=== PATIENT | female | born 2000 | race Caucasian/White ===

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

== ENCOUNTER → 2022-01-24 17:41 | Outpatient (CLI) | payer OTHER, MEDICAID, SELFPAY ==
[2022-01-24 18:13] LABS: Add Manual Diff / Slide Review NO; Basophils Absolute Auto 100 /uL (0-100); Basophils Percent Auto 0.8 % (0-2); Eosinophils Absolute Auto 200 /uL (0-450); Eosinophils Percent Auto 2.5 % (2-4); Hematocrit 41.2 % (36-46); Hemoglobin 13.9 g/dL (12.0-16.0); Lymphocytes Absolute Auto 2500 /uL (1100-4500); Mean Corpuscular HGB Conc 33.6 % (30-36); Mean Corpuscular Hemoglobin 31.1 PG (26-34); Mean Corpuscular Volume 92.6 fL (80-100); Monocytes Absolute Auto 700 /uL (0-900); Neutrophils Absolute Auto 6400 /uL (1500-7000); Neutrophils Percent Auto 64.7 % (50-75); Platelet Count 299 X10^3/uL (150-400); Red Blood Cell Count 4.45 X10^6/uL (4.0-5.2); Red Cell Distribution Width 13.6 % (11.6-14.8); White Blood Cell Count 9.9 X10^3/uL (4.5-11.0)
[2022-01-24 18:24] LABS: Alanine Aminotransferase 15 IU/L (<35); Albumin 4.9 g/dL (3.5-5.0); Albumin Globulin Ratio 1.5 (1.0-2.8); Alkaline Phosphatase 82 U/L (38-126); Aspartate Aminotransferase 21 IU/L (14-36); BUN Creatinine Ratio 15.1 (6-22); Bilirubin Total 0.2 mg/dL (0.2-1.3); Blood Urea Nitrogen 13 mg/dL (7-17); Calcium 9.3 mg/dL (8.4-10.2); Carbon Dioxide 19 mmol/L (22-32); Chloride 109 mmol/L (98-107); Estimated Glomerular Filt Rate > 60 mL/min (>60); Globulin 3.2 g/dL (1.7-4.1); Glucose 109 mg/dL (70-100); HEMOLYSIS < 15 (0-50); Potassium 3.6 mmol/L (3.4-5.1); Sodium 144 mmol/L (137-145); Total Protein 8.1 g/dL (6.3-8.2)
[2022-01-29 10:29] LABS: Lamotrigine Lamictal 7.7 ug/mL (2.0-20.0)
[2022-01-29 10:35] LABS: Ethosuximide (Zarontin), Serum 65 ug/mL (40-100)
== END ==
PROVIDERS: Family Provider Family Medicine; PCP Family Medicine; Referring Provider Pediatrics; Visit Provider Pediatrics
DX: G40.A19 Absence epileptic syndrome, intractable, without status epilepticus (principal)
CPT/HCPCS: 36415; 80053; 80168; 80175; 85025

== ENCOUNTER 2022-12-19 17:48 | Emergency (ER) | payer OTHER, SELFPAY ==
[2022-12-19] VITALS (7 sets, daily range): BP systolic 95–110; BP diastolic 51–61; PULSE 111–145; RESP 16–28; TEMP 37.1; O2SAT 94–100; BMI 25.8
[2022-12-19 18:08] LABS: Add Manual Diff / Slide Review NO; Basophils Absolute Auto 200 /uL (0-100); Basophils Percent Auto 1.1 % (0-2); Eosinophils Absolute Auto 100 /uL (0-450); Eosinophils Percent Auto 0.5 % (2-4); Hematocrit 40.9 % (36-46); Hemoglobin 13.7 g/dL (12.0-16.0); Lymphocytes Absolute Auto 3100 /uL (1100-4500); Lymphocytes Percent Auto 22.6 % (25-40); Mean Corpuscular HGB Conc 33.5 % (30-36); Mean Corpuscular Hemoglobin 31.1 PG (26-34); Mean Corpuscular Volume 92.7 fL (80-100); Monocytes Absolute Auto 800 /uL (0-900); Monocytes Percent Auto 5.7 % (3-14); Neutrophils Absolute Auto 9500 /uL (1500-7000); Neutrophils Percent Auto 70.1 % (50-75); Platelet Count 306 X10^3/uL (150-400); Red Blood Cell Count 4.41 X10^6/uL (4.0-5.2); Red Cell Distribution Width 13.3 % (11.6-14.8); White Blood Cell Count 13.5 X10^3/uL (4.5-11.0)
[2022-12-19 18:14] LABS: Albumin 4.7 g/dL (3.5-5.0); Albumin Globulin Ratio 1.7 (1.0-2.8); Alkaline Phosphatase 76 U/L (38-126); Aspartate Aminotransferase 27 IU/L (14-36); BUN Creatinine Ratio 8.8 (6-22); Bilirubin Total 0.3 mg/dL (0.2-1.3); Blood Urea Nitrogen 6 mg/dL (7-17); Carbon Dioxide 12 mmol/L (22-32); Chloride 112 mmol/L (98-107); Estimated Glomerular Filt Rate > 60 mL/min (>60); Globulin 2.8 g/dL (1.7-4.1); Glucose 126 mg/dL (70-100); HEMOLYSIS < 15 (0-50); Potassium 3.7 mmol/L (3.4-5.1); Sodium 141 mmol/L (137-145); Total Protein 7.5 g/dL (6.3-8.2)
--- NOTE | 2022-12-19 18:17 | ED.SEIZURE ---
HPI - Seizure General Chief Complaint: Seizure Stated Complaint: Seizures Time Seen by Provider: 12/19/22 17:56 Source: patient Mode of arrival: Ambulatory Limitations: no limitations History of Present Illness HPI Narrative: 22-year-old female history of seizures and epilepsy has small absent seizures and tonic-clonic like seizures. Mom reports that she is followed by Neurology at [facility]. She was noted to have a few small seizures today they typically come around menstrual cycle. She did touch base with Neurology who instructed her acute increase acetazolamide starting tomorrow. However a couple hours later she had a tonic-clonic seizure lasting a couple of minutes she did bite her tongue no urinary incontinence. At this time mother called EMS she did receive some lorazepam earlier in the day. At this time patient is awake alert oriented not having any complaints but noted to be quite tachycardic. Medications include ethosuximide, lamotrigine, fluoxetine and acetazolamide. Patient denies any alcohol use she denies feeling ill mom reports that she does not typically have tonic-clonic seizures Related Data Home Medications Medication Instructions Recorded Confirmed ethosuximide 250 mg capsule 500 mg PO BID ##0 09/03/12 09/11/22 folic acid 1 mg tablet 1 mg PO QDAY ##30 05/08/16 09/11/22 cholecalciferol (vitamin D3) 50 2,000 unit PO DAILY 08/31/18 09/11/22 mcg (2,000 unit) capsule (Vitamin D3) acetazolamide 250 mg tablet See Rx Instructions PO .COMPLEX 01/22/22 09/11/22 Previous Rx's Medication Instructions Recorded lamotrigine 250 mg tablet,extended 750 mg PO DAILY #3 tabs 07/19/18 release 24 hr lorazepam 0.5 mg tablet See Rx Instructions PO DAILY PRN 04/05/22 seizure activity #8 tabs fluoxetine 20 mg capsule 60 mg PO DAILY #90 caps 12/19/22 Allergies Allergy/AdvReac Type Severity Reaction Status Date / Time No Known Drug Allergies Allergy Verified 09/11/22 09:14 Review of Systems Review of Systems ROS Unobtainable: All systems reviewed & are unremarkable except as noted in HPI and below Patient History Medical History (Updated 12/19/22 @ 20:41 by Lakeisha Love DO) Seizures Social History (Reviewed 12/19/22 @ 18:40 by MAME Cohn Smoking Status: Never smoker second hand exposure: No alcohol intake: never substance use type: does not use Smoking Status: Never smoker alcohol intake frequency: other Substance Use Type: does not use Exam Initial Vital Signs Initial Vital Signs: Vital Signs Temperature 98.8 F 12/19/22 17:48 Pulse Rate 142 H 12/19/22 17:48 Respiratory Rate 16 12/19/22 17:48 Blood Pressure 110/55 L 12/19/22 17:48 Pulse Oximetry 95 12/19/22 17:48 Oxygen Delivery Method Room Air 12/19/22 17:48 GENERAL: Alert well-appearing 22-year-old female HEENT: Head atraumatic,EOMI, pupils reactive, face symmetric, she did better tongue on the left side CARDIOVASCULAR: Regular rate and rhythm without murmurs, rubs or gallops. RESPIRATORY: Breath sounds equal bilaterally, no wheezes rales or rhonchi. ABDOMEN: Soft, nontender. Normoactive bowel sounds all 4 quadrants. No guarding or rebound. EXTREMITIES: Normal range of motion, no clubbing or edema. Neurovascularly intact NEUROLOGICAL: Alert and oriented x4.Normal gait and speech. Cranial nerves II through XII grossly intact. SKIN: Warm, dry, no laceration, no petechiae, no rashes or lesions. Course Orders Ordered: ED Orders 12/19/22 17:45 CBC Auto Diff [Complete Blood Count AUTO DIFF] Stat CMP [Comprehensive Metabolic Panel] Stat Lamotrigine Lamictal Stat Prolactin Stat 12/19/22 18:11 EKG-12 Lead Stat 12/19/22 18:48 Urine Drug Screen, Rapid Stat Discontinued Medications Sodium Chloride (Normal Saline 0.9%) 1,000 mls @ 1,000 mls/hr IV BOLUS ONE Stop: 12/19/22 19:16 Last Infusion: 12/19/22 19:57 Dose: 0 mls/hr Documented By: Admin: 12/19/22 18:24 Dose: 1,000 mls/hr Documented By: ABBY Sodium Chloride (Normal Saline 0.9%) 1,000 mls @ 1,000 mls/hr IV BOLUS ONE Stop: 12/19/22 19:55 Last Infusion: 12/19/22 21:08 Dose: 0 mls/hr Documented By: Admin: 12/19/22 19:57 Dose: 1,000 mls/hr Documented By: ABBY Ketorolac Tromethamine (Ketorolac 30 Mg/Ml Vial) 15 mg IV NOW ONE Stop: 12/19/22 18:38 Last Admin: 12/19/22 18:45 Dose: 15 mg Documented By: ABBY Vital Signs Vital signs: Vital Signs - 8 hr 12/19/22 17:48 12/19/22 17:52 12/19/22 18:00 Temperature 98.8 F Pulse Rate 142 H 145 H Respiratory Rate 16 Blood Pressure 110/55 L 101/53 L Pulse Oximetry 95 95 Oxygen Delivery Method Room Air 12/19/22 18:00 12/19/22 18:30 12/19/22 18:30 Temperature Pulse Rate 138 H 127 H Respiratory Rate 18 22 Blood Pressure 95/51 L Pulse Oximetry 94 97 Oxygen Delivery Method 12/19/22 19:00 12/19/22 19:00 12/19/22 19:30 Temperature Pulse Rate 117 H Respiratory Rate 28 H Blood Pressure 98/56 L 104/56 L Pulse Oximetry 97 Oxygen Delivery Method 12/19/22 19:30 12/19/22 20:00 12/19/22 20:00 Temperature Pulse Rate 122 H 111 H Respiratory Rate 27 H 23 Blood Pressure 100/61 Pulse Oximetry 99 100 Oxygen Delivery Method MDM - Seizure Lab Data 12/19/22 17:45 12/19/22 17:45 Labs: Lab Results 12/19/22 12/19/22 12/19/22 Range/Units 17:45 17:45 18:48 WBC 13.5 H (4.5-11.0) X10^3/uL RBC 4.41 (4.0-5.2) X10^6/uL Hgb 13.7 (12.0-16.0) g/dL Hct 40.9 (36-46) % MCV 92.7 (80-100) fL MCH 31.1 (26-34) PG MCHC 33.5 (30-36) % RDW 13.3 (11.6-14.8) % Plt Count 306 (150-400) X10^3/uL Neut % (Auto) 70.1 (50-75) % Lymph % (Auto) 22.6 L (25-40) % [place] % (Auto) 5.7 (3-14) % Eos % (Auto) 0.5 L (2-4) % Baso % (Auto) 1.1 (0-2) % Neut # (Auto) 9500 H (6482-0277) /uL Lymph # (Auto) 3100 (6685-3111) /uL [place] # (Auto) 800 (0-900) /uL Eos # (Auto) 100 (0-450) /uL Baso # (Auto) 200 H (0-100) /uL Sodium 141 (137-145) mmol/L Potassium 3.7 (3.4-5.1) mmol/L Chloride 112 H (98-107) mmol/L Carbon Dioxide 12 L (22-32) mmol/L BUN 6 L (7-17) mg/dL Creatinine 0.68 (0.52-1.04) mg/dL Estimated GFR > 60 (>60) mL/min BUN/Creatinine Ratio 8.8 (6-22) Glucose 126 H (70-100) mg/dL Calcium 9.0 (8.4-10.2) mg/dL Total Bilirubin 0.3 (0.2-1.3) mg/dL AST 27 (14-36) IU/L ALT 28 (<35) IU/L Alkaline Phosphatase 76 (38-126) U/L Total Protein 7.5 (6.3-8.2) g/dL Albumin 4.7 (3.5-5.0) g/dL Globulin 2.8 (1.7-4.1) g/dL Albumin/Globulin Ratio 1.7 (1.0-2.8) Prolactin 148.6 H (3.0-18.6) ng/mL U Opiates 300ng/mL cut Negative (Negative) Ur Oxycodone Screen Negative (Negative) Urine Methadone Screen Negative (Negative) Ur Barbiturates Screen Negative (Negative) U Tricyclic Antidepress Negative (Negative) Ur Phencyclidine Scrn Negative (Negative) Ur Amphetamines Screen Negative (Negative) U Methamphetamines Scrn Negative (Negative) Ur MDMA Scrn (Ecstasy) Negative (Negative) U Benzodiazepines Scrn Positive H (Negative) Urine Cocaine Screen Negative (Negative) U Marijuana (THC) Screen Negative (Negative) Point of Care Testing Test Results Negative Urine Dip Bedside Urine Glucose Negative Bedside Urine Bilirubin - Negative Bedside Urine Ketone - Negative Urine Specific [place] 1.030 Bedside Urine Occult Blood - Negative Bedside Urine pH 6.0 Bedside Urine Protein +/- 15 Bedside Urine Urobilinogen - Negative Bedside Urine Nitrite - Negative Bedside Urine Leukocytes - Negative Esterase ECG Data Interpretation: Sinus tachycardia rate 135 [place] interval 120 QRS [address] changes no T-wave inversions MDM Narrative Medical decision making narrative: Patient 22-year-old female history of epilepsy and seizure disorder presenting today after multiple seizures in tonic-clonic seizure. Reports that she gets seizures around her menstrual cycle but has not had a tonic-clonic in a time. She also reports multiple seizures today which is atypical for her. Blood work so has been reviewed and supports seizure activity with bicarb of 12 and an elevated prolactin 148. She is had no seizure activity here in the ED. No need for imaging of the head she has a known seizure disorder. She is no evidence of infection or other cause for increased seizure activity. on-call neurology agrees with increasing acetazolamide to 500 twice daily and to make sure she is an extra 250 mg tonight. Patient's vitals have improved she initially was quite tachycardic however it improved with IV fluids. Discussed plan with mom and patient agree to follow-up with Neurology and agree with medication adjustment. Discharge Plan Departure Patient Disposition: Home Clinical Impression: Seizure Instructions: DI for Seizure Disorder -- Adult Activity Restrictions/Additional Instructions: No driving *You have been diagnosed with seizure disorder *What to do: At this time please follow-up with your neurologist, call them tomorrow *Continue to take medications as directed Acetazolamide 500 mg twice a day, please take an extra 250 mg tonight *Follow up with your primary care provider in 2-3 days or call [phone] *Return to ER if you should have persistent frequent seizure [or] any new, worsening or concerning symptoms Prescriptions: No Action fluoxetine 20 mg capsule 60 mg PO DAILY Qty: 90 3RF Rx Instructions: Take 3 capsules once daily acetazolamide 250 mg tablet See Rx Instructions PO .COMPLEX Rx Instructions: 1 tab PO QAM, 2 tabs PO QHS orally; ethosuximide 250 MG capsule 500 mg PO BID Qty: 0 folic acid 1 MG tablet 1 mg PO QDAY Qty: 30 lorazepam 0.5 mg tablet See Rx Instructions PO DAILY PRN (Reason: seizure activity) Qty: 8 0RF Dose Instruction: give two tabs by mouth after seizure and call 911 PO DAILY PRN; Rx Instructions: give two tabs by mouth after seizure and call 911 lamotrigine 250 mg tablet extended release 24 hr 750 mg PO DAILY Qty: 3 0RF cholecalciferol (vitamin D3) [Vitamin D3] 2,000 unit Capsule 2,000 unit PO DAILY Referrals: Ofe Schmitt MD [Non-Staff] - Arias Fowler MD [Primary Care Provider] - Stand Alone Forms: Patient Portal/API
[2022-12-19] MEDS: SODIUM CHLORIDE 0.9% 1,000 ML 1000 ML IV ×2 (18:24→19:57)
[2022-12-19 18:30] LABS: Prolactin 148.6 ng/mL (3.0-18.6)
[2022-12-19 18:32] LABS: Alanine Aminotransferase 28 IU/L (<35)
[2022-12-19] MEDS: KETOROLAC 30 MG/ML VIAL 15 MG IV (18:45)
[2022-12-19 19:14] LABS: UR Morphine/Opiate cutoff 300 Negative (Negative); Ur Creatinine Normal (Normal); Ur Specific Gravity Normal (Normal); Urine Amphetamines Negative (Negative); Urine Barbiturates Negative (Negative); Urine Benzodiazepines Positive (Negative); Urine Cocaine Negative (Negative); Urine MDMA Negative (Negative); Urine Methadone Negative (Negative); Urine Methamphetamines Negative (Negative); Urine Oxycodone Negative (Negative); Urine Phencyclidine Negative (Negative); Urine Tetrahydrocannabinol Negative (Negative); Urine Tricyclic Antidepressant Negative (Negative); Urine pH Normal (Normal)
[2022-12-24 15:20] LABS: Lamotrigine Lamictal 2.2 ug/mL (2.0-20.0)
== END 2022-12-19 21:09 | disposition home or self-care (01) ==
PROVIDERS: Emergency Provider Emergency Medicine; Family Provider Family Medicine; PCP Family Medicine
DX: G40.909 Epilepsy, unspecified, not intractable, without status epilepticus (principal); R00.0 Tachycardia, unspecified
CPT/HCPCS: 36415; 80053; 80175; 80305; 81003; 81025; 84146; 85025; 93005; 96361; 96374; 99284; J1885

== ENCOUNTER → 2023-04-13 11:19 | Outpatient (CLI) | payer OTHER, SELFPAY ==
[2023-04-13 12:24] LABS: Influenza A - CEPHEID Flu A POSITIVE (NEGATIVE); Influenza B - CEPHEID Flu B NEGATIVE (NEGATIVE); Respiratory Syncytial Virus Negative (Negative)
[2023-04-13 12:59] LABS: COVID-19 CEPHEID 4-PLEX PCR Negative (Negative)
== END ==
PROVIDERS: Family Provider Family Medicine; PCP Family Medicine; Visit Provider Nurse Practitioner Family
DX: R05.1 Acute cough (principal); J02.9 Acute pharyngitis, unspecified
CPT/HCPCS: 0241U; 87070

== ENCOUNTER 2023-05-16 17:43 | Emergency (ER) | payer OTHER, SELFPAY ==
[2023-05-16 18:02] VITALS: BP 116/68; PULSE 100; RESP 18; TEMP 36.6; O2SAT 98
[2023-05-16 18:50] LABS: COVID19 -Nasal RAPID Negative (Negative)
[2023-05-16 20:07] LABS: Add Manual Diff / Slide Review NO; Basophils Absolute Auto 100 /uL (0-100); Basophils Percent Auto 0.6 % (0-2); Eosinophils Absolute Auto 200 /uL (0-450); Eosinophils Percent Auto 2.2 % (2-4); Hematocrit 42.2 % (36-46); Hemoglobin 14.3 g/dL (12.0-16.0); Lymphocytes Absolute Auto 2600 /uL (1100-4500); Lymphocytes Percent Auto 26.6 % (25-40); Mean Corpuscular Hemoglobin 31.8 PG (26-34); Mean Corpuscular Volume 93.6 fL (80-100); Monocytes Absolute Auto 900 /uL (0-900); Monocytes Percent Auto 9.3 % (3-14); Neutrophils Absolute Auto 5900 /uL (1500-7000); Neutrophils Percent Auto 61.3 % (50-75); Platelet Count 329 X10^3/uL (150-400); Red Blood Cell Count 4.51 X10^6/uL (4.0-5.2); Red Cell Distribution Width 14.1 % (11.6-14.8); White Blood Cell Count 9.6 X10^3/uL (4.5-11.0)
[2023-05-16 20:36] LABS: Acetaminophen < 10 ug/mL (10-30); Alanine Aminotransferase 15 IU/L (<35); Albumin 4.8 g/dL (3.5-5.0); Albumin Globulin Ratio 1.4 (1.0-2.8); Alkaline Phosphatase 85 U/L (38-126); Aspartate Aminotransferase 23 IU/L (14-36); BUN Creatinine Ratio 13.9 (6-22); Bilirubin Total 0.4 mg/dL (0.2-1.3); Blood Urea Nitrogen 10 mg/dL (7-17); Calcium 9.4 mg/dL (8.4-10.2); Carbon Dioxide 19 mmol/L (22-32); Chloride 110 mmol/L (98-107); Estimated Glomerular Filt Rate > 60 mL/min (>60); Ethanol (ETOH) < 10 mg/dL; Globulin 3.4 g/dL (1.7-4.1); Glucose 89 mg/dL (70-100); HEMOLYSIS < 15 (0-50); Potassium 3.6 mmol/L (3.4-5.1); Salicylate < 1.0 mg/dL (<20); Sodium 141 mmol/L (137-145); Total Protein 8.2 g/dL (6.3-8.2)
--- NOTE | 2023-05-16 20:39 | ED_ITS ---
HPI - Psych General Chief Complaint: Psychiatric Symptoms Stated Complaint: mental health eval Time Seen by Provider: 05/16/23 20:03 Source: patient and family Mode of arrival: Ambulatory History of Present Illness HPI Narrative: 23-year-old female with history of anxiety, depression, seizure disorder presents with worsening depression. She was found tearful at home by family member, and patient told this family member that she was tired of being a burden and her depression was worsening. Patient has had breakthrough seizures recently, which tends to worsen her depression. Patient has therapists and family will talk with them tomorrow. Patient states that she was here today to speak to social work about mental health options. Patient states that she doesn't want to kill herself, but does feel she is a burden sometimes. Related Data Home Medications Medication Instructions Recorded Confirmed folic acid 1 mg tablet 1 mg PO QDAY ##30 05/08/16 04/13/23 cholecalciferol (vitamin D3) 50 2,000 unit PO DAILY 08/31/18 04/13/23 mcg (2,000 unit) capsule (Vitamin D3) acetazolamide 250 mg tablet 500 mg PO BID 01/24/23 04/13/23 Previous Rx's Medication Instructions Recorded lorazepam 0.5 mg tablet See Rx Instructions PO DAILY PRN 01/08/23 seizure activity #8 tabs prazosin 1 mg capsule 1 mg PO BEDTIME #90 caps 03/18/23 benzonatate 100 mg capsule 100 mg PO BID PRN cough #20 caps 04/13/23 fluoxetine 20 mg capsule 60 mg (3 x 20 mg) PO DAILY #90 caps 04/17/23 ethosuximide 250 mg capsule See Rx Instructions PO BID #150 04/24/23 caps lamotrigine 300 mg tablet,extended 900 mg (3 x 300 mg) PO DAILY #90 04/24/23 release 24 hr tabs Allergies Allergy/AdvReac Type Severity Reaction Status Date / Time No Known Drug Allergies Allergy Verified 04/13/23 11:18 Review of Systems Review of Systems Narrative: Negative except as noted above Patient History Medical History (Updated 05/16/23 @ 21:27 by Rox Tipton MD) Seizures Social History Smoking Status: Never smoker second hand exposure: No alcohol intake: never substance use type: does not use Smoking Status: Never smoker alcohol intake frequency: other Substance Use Type: does not use Exam Initial Vital Signs Initial Vital Signs: Vital Signs Temperature 97.8 F 05/16/23 18:02 Pulse Rate 100 H 05/16/23 18:02 Respiratory Rate 18 05/16/23 18:02 Blood Pressure 116/68 05/16/23 18:02 Pulse Oximetry 98 05/16/23 18:02 Oxygen Delivery Method Room Air 05/16/23 18:02 Const: Awake, alert, no acute distress, nontoxic appearing Cardiac: regular rate, regular rhythm RESP: unlabored, clear bilaterally, no wheezing GI: Atraumatic, soft, nontender, nondistended, no rebound, no guarding MSK: Atraumatic, full range of motion, pulses equal Skin: Warm, Dry, intact, no rashes Neuro: AO x3, CN II-XII grossly intact, moves all extremities Psych: withdrawn, poor eye contact, depressed mood Course Orders Ordered: ED Orders 05/16/23 18:14 Consult to REAL ESTATE SALESPERSON - Crimping Machine Operator For Metal Stat 05/16/23 18:24 COVID19 -Nasal RAPID Stat 05/16/23 18:58 Acetaminophen Stat Complete Blood Count AUTO DIFF Stat Comprehensive Metabolic Panel Stat Ethanol (ETOH) Stat Free T4, Direct Thyroxine Stat Salicylate Stat Thyroid Stimulating Hormone Stat 05/16/23 20:10 Urine Drug Screen, Rapid Stat 05/16/23 20:25 Test Urine Stat Vital Signs Vital signs: Vital Signs - 8 hr 05/16/23 21:35 05/16/23 21:36 05/16/23 21:36 Pulse Rate 93 H Respiratory Rate 18 Blood Pressure 112/56 L Pulse Oximetry 98 98 MDM - Psych Differential Diagnosis Differential diagnosis: Likely suicidal ideation, depression and acute anxiety Lab Data 05/16/23 18:58 05/16/23 18:58 Labs: Lab Results 05/16/23 05/16/23 05/16/23 Range/Units 08:55 18:24 18:58 WBC 9.6 (4.5-11.0) X10^3/uL RBC 4.51 (4.0-5.2) X10^6/uL Hgb 14.3 (12.0-16.0) g/dL Hct 42.2 (36-46) % MCV 93.6 (80-100) fL MCH 31.8 (26-34) PG MCHC 34.0 (30-36) % RDW 14.1 (11.6-14.8) % Plt Count 329 (150-400) X10^3/uL Neut % (Auto) 61.3 (50-75) % Lymph % (Auto) 26.6 (25-40) % Saunders % (Auto) 9.3 (3-14) % Eos % (Auto) 2.2 (2-4) % Baso % (Auto) 0.6 (0-2) % Neut # (Auto) 5900 (3601-7008) /uL Lymph # (Auto) 2600 (5998-1136) /uL Saunders # (Auto) 900 (0-900) /uL Eos # (Auto) 200 (0-450) /uL Baso # (Auto) 100 (0-100) /uL Sodium 141 (137-145) mmol/L Potassium 3.6 (3.4-5.1) mmol/L Chloride 110 H (98-107) mmol/L Carbon Dioxide 19 L (22-32) mmol/L BUN 10 (7-17) mg/dL Creatinine 0.72 (0.52-1.04) mg/dL Estimated GFR > 60 (>60) mL/min BUN/Creatinine Ratio 13.9 (6-22) Glucose 89 (70-100) mg/dL Calcium 9.4 (8.4-10.2) mg/dL Total Bilirubin 0.4 (0.2-1.3) mg/dL AST 23 (14-36) IU/L ALT 15 (<35) IU/L Alkaline Phosphatase 85 (38-126) U/L Total Protein 8.2 (6.3-8.2) g/dL Albumin 4.8 (3.5-5.0) g/dL Globulin 3.4 (1.7-4.1) g/dL Albumin/Globulin Ratio 1.4 (1.0-2.8) TSH 1.73 (0.47-4.68) uIU/mL Free T4 0.99 (0.78-2.19) ng/dL Urine Test Negative (Negative) Salicylates < 1.0 (<20) mg/dL U Opiates 300ng/mL cut Negative (Negative) Ur Oxycodone Screen Negative (Negative) Urine Methadone Screen Negative (Negative) Acetaminophen < 10 (10-30) ug/mL Ur Barbiturates Screen Negative (Negative) U Tricyclic Antidepress Negative (Negative) Ur Phencyclidine Scrn Negative (Negative) Ur Amphetamines Screen Negative (Negative) U Methamphetamines Scrn Negative (Negative) Ur MDMA Scrn (Ecstasy) Negative (Negative) U Benzodiazepines Scrn Positive H (Negative) Urine Cocaine Screen Negative (Negative) U Marijuana (THC) Screen Negative (Negative) Urine pH Not Reportable Urine Specific [place] Not Reportable Ethyl Alcohol < 10 ( - 10) mg/dL Ur Creatinine Not Reportable SARS-CoV-2 (PCR) Negative (Negative) MDM Narrative Medical decision making narrative: Worsening depression with passive suicidal ideation. Patient here today to see social work, however by the time the patient was able to be roomed social work had already left for the day. Family member at bedside states that they have had time to discuss things while waiting in the waiting room and they have come up with a safety plan between the 2 of them. Mother states she feels comfortable taking the patient home and they are able to speak to her counselors tomorrow if needed. Social work consult placed in system. Discharge Plan Departure Patient Disposition: Home Clinical Impression: Major depression Instructions: Depression Prescriptions: No Action acetazolamide 250 mg tablet 500 mg PO BID benzonatate 100 mg capsule 100 mg PO BID PRN (Reason: cough) Qty: 20 0RF folic acid 1 MG tablet 1 mg PO QDAY Qty: 30 lorazepam 0.5 mg tablet See Rx Instructions PO DAILY PRN (Reason: seizure activity) Qty: 8 0RF Dose Instruction: give two tabs by mouth after seizure and call 911 PO DAILY PRN; Rx Instructions: give two tabs by mouth after seizure and call 911 prazosin 1 mg capsule 1 mg PO BEDTIME Qty: 90 1RF fluoxetine 20 mg capsule 60 mg PO DAILY Qty: 90 0RF lamotrigine 300 mg tablet extended release 24hr 900 mg PO DAILY Qty: 90 0RF ethosuximide 250 mg capsule See Rx Instructions PO BID Qty: 150 0RF Rx Instructions: Take 750mg in the am and 500mg in the pm cholecalciferol (vitamin D3) [Vitamin D3] 2,000 unit Capsule 2,000 unit PO DAILY Referrals: Arias Fowler MD [Primary Care Provider] - Stand Alone Forms: Patient Portal/API, Work Release Note
[2023-05-16 20:51] LABS: Free T4, Direct Thyroxine 0.99 ng/dL (0.78-2.19)
[2023-05-16 21:05] LABS: Thyroid Stimulating Hormone 1.73 uIU/mL (0.47-4.68)
[2023-05-16 21:16] LABS: Pregnancy Test Urine Negative (Negative); UR Morphine/Opiate cutoff 300 Negative (Negative); Urine Amphetamines Negative (Negative); Urine Barbiturates Negative (Negative); Urine Benzodiazepines Positive (Negative); Urine Cocaine Negative (Negative); Urine MDMA Negative (Negative); Urine Methadone Negative (Negative); Urine Methamphetamines Negative (Negative); Urine Oxycodone Negative (Negative); Urine Phencyclidine Negative (Negative); Urine Tetrahydrocannabinol Negative (Negative); Urine Tricyclic Antidepressant Negative (Negative)
[2023-05-16 21:35] VITALS: O2SAT 98
[2023-05-16 21:36] VITALS: BP 112/56; PULSE 93; RESP 18; O2SAT 98
--- NOTE | 2023-05-17 12:04 | CM.SWNOTE ---
ED BROTH SETTER follow up Note BROTH SETTER receives consult for f/u regarding patient's recent presentation to ED last night due to concern for Depression and vague SI. BROTH SETTER calls phone number provided for patient and leaves requesting return call. Patient's mother calls back and states that [facility] Crisis team is currently meeting with patient. Mother states that she was on the phone with patient's Neurologist earlier and is trying to set up a follow up appt with them. BROTH SETTER provides patient's mother with the names of two psychiatric nurses that accept patient's insurance. Patient's mother states she feels better now that the crisis team is meeting with patient and is hopeful they will provide resources and assistance as well. Brooke Morocho, QUILTING SUPERVISOR
== END 2023-05-16 21:44 | disposition home or self-care (01) ==
PROVIDERS: Emergency Provider Emergency Medicine; Family Provider Family Medicine; PCP Family Medicine
DX: F32.A Depression, unspecified (principal); Z20.822 Contact with and (suspected) exposure to COVID-19
CPT/HCPCS: 80053; 80305; 80320; 80329; 81025; 84439; 84443; 85025; 87635; 99283; G0480

== ENCOUNTER → 2023-05-21 17:43 | Outpatient (CLI) | payer OTHER, SELFPAY ==
[2023-05-21 18:04] LABS: Hematocrit 39.7 % (36-46); Hemoglobin 13.4 g/dL (12.0-16.0); Mean Corpuscular HGB Conc 33.6 % (30-36); Mean Corpuscular Hemoglobin 31.3 PG (26-34); Mean Corpuscular Volume 93.1 fL (80-100); Platelet Count 321 X10^3/uL (150-400); Red Blood Cell Count 4.27 X10^6/uL (4.0-5.2); Red Cell Distribution Width 13.9 % (11.6-14.8); White Blood Cell Count 8.1 X10^3/uL (4.5-11.0)
[2023-05-21 18:43] LABS: Alanine Aminotransferase 12 IU/L (<35); Albumin 4.3 g/dL (3.5-5.0); Albumin Globulin Ratio 1.5 (1.0-2.8); Alkaline Phosphatase 63 U/L (38-126); Aspartate Aminotransferase 20 IU/L (14-36); BUN Creatinine Ratio 12.8 (6-22); Bilirubin Total 0.4 mg/dL (0.2-1.3); Blood Urea Nitrogen 10 mg/dL (7-17); Carbon Dioxide 19 mmol/L (22-32); Chloride 114 mmol/L (98-107); Estimated Glomerular Filt Rate > 60 mL/min (>60); Globulin 2.9 g/dL (1.7-4.1); Glucose 115 mg/dL (70-100); HEMOLYSIS < 15 (0-50); Potassium 3.7 mmol/L (3.4-5.1); Sodium 140 mmol/L (137-145); Total Protein 7.2 g/dL (6.3-8.2)
[2023-05-24 09:26] LABS: Lamotrigine Lamictal 7.4 ug/mL (2.0-20.0)
[2023-05-24 14:46] LABS: Ethosuximide (Zarontin), Serum 108 ug/mL (40-100)
== END ==
PROVIDERS: Family Provider Family Medicine; PCP Family Medicine; Referring Provider Pediatrics; Visit Provider Pediatrics
DX: G40.A19 Absence epileptic syndrome, intractable, without status epilepticus (principal)
CPT/HCPCS: 36415; 80053; 80168; 80175; 85027